=== PATIENT | male | born 1995 | race Caucasian/White ===

== ENCOUNTER 2017-03-17 16:33 | Emergency (ER) | payer OTHER ==
[2017-03-17 16:46] VITALS: BP 133/77
[2017-03-17] MEDS ORDERED: Ondansetron 4 MG/2 ML SDV IVPUSH ONE (17:36)
[2017-03-17] MEDS ORDERED: Morphine 10 MG/ML Syringe IVPUSH ONE (17:36)
[2017-03-17] MEDS ORDERED: Lactated Ringers 1,000 ML IV ONE (17:36)
[2017-03-17] MEDS ORDERED: Sodium Chloride 0.9% 10 ML Syringe FLUSH PRN (17:36)
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
[2017-03-17 18:07] LABS: CHLORIDE,CL 101 mmol/L (98-107); SODIUM,NA 139 mmol/L (136-145)
== END 2017-03-17 18:19 ==
LOC: LL.ED 16:33
DX: S09.90XA Unspecified injury of head, initial encounter (principal); S02.609B Fracture of mandible, unspecified, initial encounter for open fracture; F32.9 Major depressive disorder, single episode, unspecified; Z88.8 Allergy status to other drugs, medicaments and biological substances; Z88.1 Allergy status to other antibiotic agents; Z79.899 Other long term (current) drug therapy; Y04.0XXA Assault by unarmed brawl or fight, initial encounter; Y92.410 Unspecified street and highway as the place of occurrence of the external cause
CPT/HCPCS: 36415; 70450; 70486; 72125; 80053; 85025; 96361; 96374; 96375; 99285; J2270; J2405; J7050; J7120